=== PATIENT | female | born 1990 | race Two or more races ===

== ENCOUNTER 2024-04-13 19:16 | Emergency (ER) | payer MEDICAID, SELFPAY ==
[2024-04-13 19:16] VITALS: BMI 23.3
[2024-04-13 20:14] VITALS: BP 108/67; PULSE 83; RESP 16; TEMP 36.9; O2SAT 99
--- NOTE | 2024-04-13 20:29 | XR_ITS ---
Examination: CT abdomen and pelvis without contrast. Coronal 3-D reconstructions. Sagittal 2-D reconstructions. Date and time of exam:April 13, 2024 10:32 PM Indications: Right lower abdominal pain right flank pain today CTDI: vol (mGy): 6.17 DLP: (mGycm): 333 Technique: Axial images of the abdomen have been obtained, 3 mm slice thickness Intravenous contrast material has not been administered. Low dose protocols were performed. One or more of the following dose reduction techniques were used; automated exposure control, adjustment of the mA and/or KV according to patient size, use of iterative reconstruction technique. Findings: No focal liver or splenic lesion No gallstones No pancreatic or adrenal mass Mildly hyperdense renal pyramids No hydronephrosis or ureteral calculi Aorta normal size Normal appendix, coronal image 44 Anteverted uterus with intrauterine device satisfactory position Uterus overall appears prominent in size Contracted urinary bladder Impression: No ureteral calculi or hydronephrosis Normal appendix Uterus appears mildly enlarged, recommend pelvic sonography follow-up
--- NOTE | 2024-04-13 20:30 | PD.EDRME ---
Rapid Medical Screening Exam RME Arrival date/time: 04/13/24 19:16 33-year-old female presents emergency department complaining of diffuse abdominal pain. Chief Complaint: Abdominal Pain Time Seen by Provider: 04/13/24 20:26 Vital signs: Vital Signs Temperature 98.4 F 04/13/24 20:14 Pulse Rate 83 04/13/24 20:14 Respiratory Rate 16 04/13/24 20:14 Blood Pressure 108/67 04/13/24 20:14 Pulse Oximetry (%) 99 04/13/24 20:14 Oxygen Delivery Method Room Air 04/13/24 20:14 Vital signs reviewed by provider: Yes
[2024-04-13] MEDS: KETOROLAC INJ 60 MG/2 ML VIAL 30 MG IM (20:39)
[2024-04-13 20:47] LABS: Collection Type, Urine Clean Catch
[2024-04-13 21:17] LABS: Bilirubin,Urine Negative (Negative); Blood,Urine 3+ (Negative); Culture Indicated,Urine Contaminated; Glucose, Urine Negative (Negative); Ketones,Urine Negative (Negative); Leukocyte Esterase,Urine Positive (Negative); Nitrite,Urine Negative (Negative); Protein,Urine 2+ (Neg - Trace); RBC,Urine 46 /hpf (0-3); Squamous Epithelial Cell,Urine 97 /hpf (0-5); Urobilinogen,Urine Negative mg/dL (0.0-1.0); WBC,Urine 741 /hpf (0-5)
[2024-04-13 21:18] LABS: Budding Yeast,Urine Present; Clarity,Urine Hazy (Clear/Hazy); Color,Urine Yellow (Lt Yel-Yel)
[2024-04-13 21:37] LABS: Basophils % (Auto) 0 % (0-2.5); Eosinophils # (Auto) 0.1 Thou/mm3 (0.0-0.5); Eosinophils % (Auto) 0 % (0-10); Hematocrit 41.5 % (36.0-46.0); Hemoglobin 13.4 g/dL (12.0-16.0); Immature Granulocytes % (Auto) 1 % (0-0); Lymphocytes # (Auto) 0.8 Thou/mm3 (1.0-4.8); Lymphocytes % (Auto) 5 % (10-50); Mean Corpuscular HGB Conc 32.3 g/dl (31.0-37.0); Mean Corpuscular Hemoglobin 26.1 pg (25.0-35.0); Mean Corpuscular Volume 81 fL (80-100); Monocytes # (Auto) 1.3 Thou/mm3 (0.0-0.8); Monocytes % (Auto) 8 % (0-12); Neutrophils # (Auto) 15.3 Thou/mm3 (1.8-7.7); Neutrophils % (Auto) 87 % (37-80); Nucleated Red Blood Cell % 0 /100 WBC (0); Platelet Count 172 Thou/mm3 (140-440); RDW Standard Deviation 39.3 fL (36.4-46.3); Red Blood Count 5.14 Miln/mm3 (4.00-5.20); White Blood Count 17.6 Thou/mm3 (3.6-11.0)
[2024-04-13 21:59] LABS: Alanine Aminotransferase < 7 U/L (10-49); Albumin, Serum 4.1 gm/dL (3.5-5.0); Albumin/Globulin Ratio 1.5 (1.2-2.2); Alkaline Phosphatase 46 U/L (46-116); Anion Gap 7 (7-16); Aspartate Amino Transferase 13 U/L (0-34); BUN/Creatinine Ratio 13 Ratio (12-20); Bilirubin,Total 1.2 mg/dL (0.3-1.2); Blood Urea Nitrogen 9 mg/dL (9-23); Calcium 9.2 mg/dL (8.3-10.6); Calcium (Corrected) 9.2 mg/dL (8.5-10.1); Carbon Dioxide 27.2 mMol/L (20.0-31.0); Chloride 101 mMol/L (98-107); Creatinine (Component) 0.7 mg/dL (0.6-1.3); Estimated Creatinine Clearance 104.8 mL/min (>60); Globulin 2.8 gm/dL (2.3-3.5); Glucose 98 mg/dL (74-106); Lipase 28 U/L (12-53); Osmolality,Calculated 268 (275-295); Potassium 3.6 mMol/L (3.4-5.1); Sodium 135 mMol/L (136-145); Total Protein 6.9 gm/dL (5.7-8.2); eGFR > 60 See Note
[2024-04-13 22:10] LABS: HCG,Qualitative Serum Negative
--- NOTE | 2024-04-13 23:43 | XR_ITS ---
Examination: Pelvic ultrasound, transabdominal, complete Technique: Transabdominal ultrasound of the pelvis performed using grayscale imaging Date and time of exam: April 14, 2024 1251 hours INDICATIONS: Epigastric pain enlarged uterus on CT pelvis study April 13, 2024, pelvic pain this week FINDINGS: Uterus 11.1 x 5.2 x 7.4 cm Intrauterine device satisfactory position Vascular uterine mass 1.9 x 1.9 x 2.0 cm Endometrial stripe 0.8 cm Right ovary 3.8 x 2.1 x 2.7 cm arterial flow Left ovary 3.5 x 2.4 x 2.9 cm arterial flow IMPRESSION: Enlarged uterus with solid uterine fundal mass, 1.8 x 1.9 x 2.0 cm
[2024-04-14 01:13] VITALS: BP 110/71; PULSE 80; RESP 16; TEMP 36.9; O2SAT 98
--- NOTE | 2024-04-14 02:42 | PRELIM_ITS ---
Pelvic ultrasound (transabdominal) with doppler and wave doppler spectral analysis. April 14, 2024 0051 hours Clinical history: Enlarged uterus.Technique: Real-time, grayscale, transabdominal pelvic u ltrasound was performed using Duplex scanning including arterial inflow, venous outflow, color and sp ectral Doppler.Comparison: None available at the time of this report.Findings:The uterus is normal in size measuring 11.1 x 5.2 x 7.4 cm. Possible arcuate uterus. Solid vascular hyperechoic lesion at th e uterine fundus measuring 1.8 x 1.9 x 2.0 cm. The endometrium measures 0.5 cm. IUD noted in place. Fluid within the endometrial cavity.The right ovary measures 2.7 x 2.1 x 3.8 cm and is unremarkable.T he left ovary measures 2.9 x 2.4 x 3.5 cm and is unremarkable.Both ovaries demonstrate color flow and spectral waveforms on Doppler evaluation.There is no adnexal mass.There is no free fluid on the subm itted images.Impression:Indeterminate solid lesion at the uterine fundus, possibly fibroid. Consider correlation with MRI.No evidence of ovarian torsion.Possible endometritis. Please, correlate clinical ly.Possible arcuate uterus, consider correlation with MRI. Report Electronically Signed By: Gregg elizabeth 04/14/2024 2:42:02 AM [EST]
--- NOTE | 2024-04-14 03:14 | PD.EDABDPN ---
ED Abdominal Pain RME/HPI General Chief Complaint: Abdominal Pain Stated complaint: R SIDE ABD PAIN, HEADACHE Time seen by provider: 04/13/24 20:26 Arrival date/time: 04/13/24 19:16 33-year-old female presents emergency department complaining of diffuse abdominal pain. Patient reports has IUD in place for contraception. Denies any fever, chills, nausea vomiting, vaginal bleeding, flank pain, or any other associated symptom. Source: patient Mode of arrival: ambulatory Limitations: no limitations RME / HPI RME / HPI narrative: 04/13/24 19:16 33-year-old female presents emergency department complaining of diffuse abdominal pain. Related Data Previous Rx's ?Medication ?Instructions ?Recorded loperamide 2 mg capsule 2 mg PO Q6H PRN loose stool #14 04/01/21 caps ondansetron HCl 4 mg tablet 4 mg PO Q8H #14 tabs 04/01/21 (Zofran) naproxen 500 mg tablet (Naprosyn) 500 mg PO BID PRN pain #30 tabs 06/30/21 naproxen 500 mg tablet 500 mg PO BID PRN pain #30 tabs 05/19/23 doxycycline hyclate 100 mg capsule 100 mg PO BID 14 days #28 caps 04/14/24 ibuprofen 800 mg tablet 800 mg PO TID PRN fever or pain 04/14/24 #30 tabs metronidazole 500 mg tablet 500 mg PO BID 14 days #28 tabs 04/14/24 Allergies Allergy/AdvReac Type Severity Reaction Status Date / Time NKA* Allergy Uncoded 04/13/24 19:18 Review of Systems Review of Systems Systems Reviewed: All systems reviewed, normal except as documented Constitutional Constitutional: Reports system reviewed and no additional complaints, except as documented, Denies body ache(s), Denies chills and Denies fever(s) Eyes Eyes: Reports system reviewed and no additional complaints, except as documented and Denies change in vision ENT Ears, Nose, Mouth, and Throat: Reports system reviewed and no additional complaints, except as documented, Denies disequilibrium, Denies dizziness, Denies sore throat and Denies vertigo Cardiovascular Cardiovascular: Reports system reviewed and no additional complaints, except as documented, Denies chest pain and Denies dyspnea Respiratory Respiratory: Reports system reviewed and no additional complaints, except as documented, Denies chest congestion, Denies cough and Denies dyspnea Gastrointestinal Gastrointestinal: Reports system reviewed and no additional complaints, except as documented, Reports abdominal pain, Denies nausea and Denies vomiting Musculoskeletal Musculoskeletal: Reports system reviewed and no additional complaints, except as documented, Denies abnormal gait and Denies arthralgias Integumentary/Breasts Skin/Breast: Reports system reviewed and no additional complaints, except as documented, Denies erythema, Denies rash and Denies wounds Neurologic Neurologic: Reports system reviewed and no additional complaints, except as documented, Denies abnormal gait, Denies disequilibrium, Denies dizziness and Denies vertigo Past Medical History Past Medical History CARDIAC: Negative Congestive Heart Failure RESPIRATORY: Negative Chronic Obstructive Pulmonary Disease (COPD) GENITOURINARY: Negative Renal Disease ENDOCRINE: Negative Diabetes Mellitus Type 1 or Diabetes Mellitus Type 2 Social History SMOKING STATUS: Never smoker ED Exam General Limitations: Present no limitations General appearance: Present alert and in no apparent distress Head Head exam: Present atraumatic Eye Eye exam: Present normal appearance, PERRL and EOMI ENT ENT exam: Present normal exam, normal oropharynx and mucous membranes moist Neck Neck exam: Present normal inspection, full ROM and trachea midline Chest Chest inspection: Present normal inspection and symmetric chest wall rise Respiratory Respiratory exam: Present normal lung sounds bilaterally Cardiovascular Cardiovascular exam: Present regular rate, normal rhythm and normal heart sounds Abdominal Exam Abdominal exam: Present soft and normal bowel sounds Extremities Exam Extremities exam: Present normal inspection and full ROM Back Exam Back exam: Present normal inspection and full ROM Neurological Exam Neurological exam: Present alert, oriented X3 and CN II-XII intact Psychiatric Psychiatric exam: Present normal affect and normal mood Skin Skin exam: Present warm, dry, intact and normal color Course Quality Measures none Orders Category Date Time Status CT abdomen pelvis wo con Stat Exams 04/13/24 20:29 Completed US pelvic complete Stat Exams 04/13/24 23:43 Taken CBC Stat Lab 04/13/24 20:46 Completed CMP [Comprehensive Metabolic Panel] Stat Lab 04/13/24 20:46 Completed HCG,Qualitative Serum Stat Lab 04/13/24 20:46 Completed Lipase Stat Lab 04/13/24 20:46 Completed Urinalysis, C/S if Indicated Stat Lab 04/13/24 20:36 Completed HYDROcodone*/APAP 5/325 [Totz 5/325] Med 04/14/24 03:14 Discontinued 1 tab PO X1 ONE Ketorolac Inj [Toradol Inj] Med 04/13/24 20:29 Discontinued 30 mg IM X1 ONE cefTRIAXone [Rocephin] 1,000 mg Med 04/14/24 03:09 Discontinued Lidocaine 1% 20 ml [Xylocaine 1% 20 ML] 2.1 ml IM X1 Vital Signs Vital signs: Vital Signs Temperature 98.4 F 04/13/24 20:14 Pulse Rate 83 04/13/24 20:14 Respiratory Rate 16 04/13/24 20:14 Blood Pressure 108/67 04/13/24 20:14 Pulse Oximetry (%) 99 04/13/24 20:14 Oxygen Delivery Method Room Air 04/13/24 20:14 99% room air within normal limits Abdominal Pain MDM MDM Narrative MDM Narrative:: 33-year-old female presents emergency department complaining of diffuse abdominal pain. Patient reports has IUD in place for contraception. Denies any fever, chills, nausea vomiting, vaginal bleeding, dysuria, flank pain, or any other associated symptom. CBC remarkable for leukocytosis 17.6. CMP unremarkable for any elevated LFTs or gross electro abnormalities. Urinalysis positive for WBCs, RBCs, leukocytes, and several epithelial cells possibly contaminated. CT scan was unremarkable other than mildly enlarged uterus. Pelvic ultrasound obtained impression: Intermediate solid lesion at the uterine fundus possibly fibroid. No evidence of ovarian torsion. Possible endometritis please correlate clinically. Possible arcuate uterus, consider correlation with MRI. Patient appears nontoxic and is hemodynamically stable. Patient denies any fevers or dysuria the patient does report pain. Patient reports pain medication did reduce pain. Will treat patient for acute endometritis with IM Rocephin and oral doxycycline and Flagyl with close follow-up with [facility] in 48 to 72 hours for possible removal of intra uterine device if no improvement. Patient given strict instructions to have close follow-up with [facility] and return immediately to emergency department for any worsening signs of infection such as fever, worsening pain, or as needed. Patient data External records reviewed:: [facility] previous records Clinical information provided by:: patient Social determinants that could affect healthcare access:: none Patient has the following chronic illnesses:: None How is presenting disease/condition affected by chronic disease/condition?: no chronic disease Evaluation data The following diagnostics were reviewed and interpreted by me:: lab results and radiology exam(s) Lab and/or radiology exams considered but not ordered:: Ordered Interpretation Summary: Interpreted by me Medications / Prescriptions Medications or Prescriptions considered but not ordered:: Ordered Medication administrations:: Medication Administration History Discontinued Medications Hydrocodone Bitart/Acetaminophen (Hydrocodone/Apap 5/325 Tablet) 1 tab PO X1 ONE Stop: 04/14/24 03:15 Ceftriaxone Sodium 1,000 mg/ (Lidocaine HCl 2.1 ml) 0 mg IM X1 ONE Stop: 04/14/24 03:10 Ketorolac Tromethamine (Ketorolac Inj 60 Mg/2 Ml Vial) 30 mg IM X1 ONE Stop: 04/13/24 20:30 Last Admin: 04/13/24 20:39 Dose: 30 mg Documented By: Given Consultations Consultation(s) initiated? (list below): No Diagnosis Differential diagnosis abdominal pain: abdominal pain, acute appendicitis, calculus of kidney, constipation, diverticulitis, endometriosis, gastroenteritis, pancreatitis and small bowel obstruction Most likely diagnosis given after review of the tests above:: Acute endometritis Admission Indicated Admission indicated?: not indicated Admission Request Was there a request for admission?: No Disposition Plan Disposition Plan: Discharge Discharge Attestation Discharge Attestation: The patient and all family members were given an opportunity to ask questions and understood the discharge instructions. Discharge instructions specifically effects, indications for sooner follow up or return to the emergency department, and the expected course of current diagnosis. Patient condition: Stable Discharge Plan Plan Patient Disposition: HOME (Self Care) Disposition Comment: Stable Prescriptions/Referrals Prescriptions/Med Rec: New doxycycline hyclate 100 mg capsule 100 mg PO BID 14 Days Qty: 28 0RF metronidazole 500 mg tablet 500 mg PO BID 14 Days Qty: 28 0RF ibuprofen 800 mg tablet 800 mg PO TID PRN (Reason: fever or pain) Qty: 30 0RF No Action ondansetron HCl [Zofran] 4 mg tablet 4 mg PO Q8H Qty: 14 0RF loperamide 2 mg capsule 2 mg PO Q6H PRN (Reason: loose stool) Qty: 14 0RF naproxen [Naprosyn] 500 mg tablet 500 mg PO BID PRN (Reason: pain) Qty: 30 0RF naproxen 500 mg tablet 500 mg PO BID PRN (Reason: pain) Qty: 30 0RF Referrals: Ilan Frazier MD [Primary Care Provider] - In 1 week Problem List Clinical Impression: Acute endometritis Patient/Caregiver Discharge Instructions Discharge Activity: activity as tolerated Additional Instructions: Drink plenty of fluids and stay hydrated. Take ibuprofen as needed for pain. Take antibiotics as prescribed. Close follow-up with [facility] in 2 to 3 days. Return immediately to emergency department for any worsening signs of infection, fever, severe pain, or as needed. Print Language: Romansh Stand Alone Forms: Rosaura Award Info., Patient Portal Info Letter PA/AMY Supervising Physician PA/AMY Supervising Physician: Dr. Valles
[2024-04-14] MEDS: cefTRIAXone 1,000 MG, LIDOCAINE 1% 20 ML 2.1 ML IM (03:25)
[2024-04-14] MEDS: HYDROcodone/APAP 5/325 TABLET 1 TAB PO (03:25)
== END 2024-04-14 03:28 | disposition home or self-care (01) ==
PROVIDERS: Emergency Provider Emergency Medicine; PCP Family Medicine
DX: N71.0 Acute inflammatory disease of uterus (principal); Z97.5 Presence of (intrauterine) contraceptive device
CPT/HCPCS: 36415; 74176; 76856; 80053; 81001; 83690; 84703; 85025; 96372; 99284; J0696; J1885; J3490; A9270

== ENCOUNTER → 2024-08-12 | Outpatient (CLI) | payer MEDICAID, SELFPAY ==
[2024-08-12 14:55] LABS: HCG Qualitative,Urine Negative
--- NOTE | 2024-08-12 15:30 | XR_ITS ---
Examination: MRI pelvis with intravenous contrast. MRI pelvis without intravenous contrast. Date and time of exam: August 12, 2024 1548 hours INDICATIONS: Pelvic pain beginning 6 months ago, 18 x 19 x 20 mm uterine fundal mass on pelvic sonogram April 14, 2024 Technique: Multiple axial, sagittal and coronal sections of the pelvis obtained. Transverse images, TR 6020, TE 107. T1 weighted transverse images, TR 582, TE 9.5. T2-weighted sagittal images, TR 4000, TE 105. T2-weighted sagittal images, TR 4000, TE 5. Coronal images, TR 4210, TE 107. Axial and coronal images are obtained post 14 cc intravenous injection, gadolinium. Findings: Anteverted uterus, 11 x 6 x 7 cm Endometrial stripe 0.6 cm Circumscribed uterine fundal mass, 30 x 28 mm Bilateral benign ovarian follicular cysts Fluid-filled tubular structure in the right adnexal region measuring up to 10 mm Postcontrast images do not demonstrate significant enhancement of the uterine fundal mass IMPRESSION: 30 x 28 mm area of uterine fundal fibroid degeneration Recommend repeat pelvic sonography to exclude right hydrosalpinx
== END | disposition home or self-care (01) ==
PROVIDERS: Referring Provider Physician Assistant Medical; Visit Provider Physician Assistant Medical
DX: D25.9 Leiomyoma of uterus, unspecified (principal); Z32.00 Encounter for pregnancy test, result unknown
CPT/HCPCS: 72197; 81025; A9579

== ENCOUNTER 2024-11-17 16:24 | Emergency (ER) | payer MEDICAID, SELFPAY ==
[2024-11-17 16:32] VITALS: BP 109/70; PULSE 57; RESP 18; TEMP 36.6; O2SAT 98
[2024-11-17 16:53] VITALS: PULSE 86; RESP 16; O2SAT 98; BMI 23.3
--- NOTE | 2024-11-17 17:27 | PD.EDADULT ---
ED General RME/HPI General Stated complaint: ANXIETY ATTACK Time Seen by Provider: 11/17/24 17:04 Arrival date/time: 11/17/24 16:24 RME / HPI RME / HPI narrative: 34-year-old female presents to the ED with a complaint of an anxiety attack. Earlier today while driving home from work, she experienced fast heart rate, rapid breathing, numbness and tingling to her face hands and feet with cramping of the hands and feet. She has been under heavy stress recently at work as well as trying to plan a [employer] constitution party for her children tomorrow with over 400 people. Spouse states she gets angry around the time of her menstrual cycle and she is currently on her menstrual cycle. She is feeling much improved now. Related Data Previous Rx's ?Medication ?Instructions ?Recorded loperamide 2 mg capsule 2 mg PO Q6H PRN loose stool #14 04/01/21 caps ondansetron HCl 4 mg tablet 4 mg PO Q8H #14 tabs 04/01/21 (Zofran) naproxen 500 mg tablet (Naprosyn) 500 mg PO BID PRN pain #30 tabs 06/30/21 naproxen 500 mg tablet 500 mg PO BID PRN pain #30 tabs 05/19/23 ibuprofen 800 mg tablet 800 mg PO TID PRN fever or pain 04/14/24 #30 tabs buspirone 5 mg tablet 5 mg PO TID PRN Anxiety symptoms 11/17/24 #30 tabs Allergies Allergy/AdvReac Type Severity Reaction Status Date / Time No Known Allergies Allergy Verified 11/17/24 16:53 Review of Systems Review of Systems Systems Reviewed: All systems reviewed, normal except as documented Past Medical History Past Medical History CARDIAC: Negative Congestive Heart Failure RESPIRATORY: Negative Chronic Obstructive Pulmonary Disease (COPD) GENITOURINARY: Negative Renal Disease ENDOCRINE: Negative Diabetes Mellitus Type 1 or Diabetes Mellitus Type 2 Social History SMOKING STATUS: Current every day smoker ED Exam Narrative Physical exam: A&O, afebrile and non-toxic appearing 34-year-old female, no acute distress. Pupils are PERRL, EOMs intact. Cranial nerves II through XII grossly intact. Equal desktop support engineer strength, equal pedal push/pull. Sensory and motor equal to all 4 extremities. Lung sounds are clear, RRR without murmurs, Abdomen is soft, nontender, and non-distended. Moves all extremities well. Course Course Course Narrative: Patient was given BuSpar 5 mg p.o. x 1. Quality Measures none Orders Category Date Time Status BusPIRone HCL [Buspar] Med 11/17/24 17:27 Once 5 mg PO X1 ONE Vital Signs Vital signs: Vital Signs Temperature 97.8 F 11/17/24 16:32 Pulse Rate 57 L 11/17/24 16:32 Respiratory Rate 18 11/17/24 16:32 Blood Pressure 109/70 11/17/24 16:32 Pulse Oximetry (%) 98 11/17/24 16:32 Oxygen Delivery Method Room Air 11/17/24 16:32 Discharge Plan Plan Patient Disposition: HOME (Self Care) Discharge Disposition comment: Stable Prescriptions/Referrals Prescriptions/Med Rec: New buspirone 5 mg tablet 5 mg PO TID PRN (Reason: Anxiety symptoms) Qty: 30 0RF No Action ondansetron HCl [Zofran] 4 mg tablet 4 mg PO Q8H Qty: 14 0RF loperamide 2 mg capsule 2 mg PO Q6H PRN (Reason: loose stool) Qty: 14 0RF naproxen [Naprosyn] 500 mg tablet 500 mg PO BID PRN (Reason: pain) Qty: 30 0RF naproxen 500 mg tablet 500 mg PO BID PRN (Reason: pain) Qty: 30 0RF ibuprofen 800 mg tablet 800 mg PO TID PRN (Reason: fever or pain) Qty: 30 0RF Problem List Clinical Impression: Anxiety as acute reaction to exceptional stress Patient/Caregiver Discharge Instructions Education Materials: Ross to Managing Stress, Stress Relief: Relaxation, ED Anxiety Reaction Additional Instructions: Use the medication prescribed to help with your symptoms. Discussed with your primary care physician about obtaining thyroid tests to make sure this is not one of the problems causing your stress. Also discuss premenstrual dysphoric disorder for help with this problem. A once weekly dose of an antidepressant can help control the symptoms as well. Try relaxation techniques and controlled breathing as discussed in the ED. Follow-up with your primary care physician in 24 to 48 hours. Return to the ED for any new or worsening symptoms. Print Language: Urdu Stand Alone Forms: Rosaura Award Info., Patient Portal Info Letter PA/[employer] Supervising Physician PA/AMY Supervising Physician: Dr. Noriega
== END 2024-11-17 18:01 | disposition home or self-care (01) ==
LOC: SERX 18:05
PROVIDERS: Emergency Provider Emergency Medicine
DX: F41.1 Generalized anxiety disorder (principal); F43.0 Acute stress reaction
CPT/HCPCS: 99282; A9270